=== PATIENT | male | born 1985 | race African-American/Black ===

== ENCOUNTER 2019-06-22 18:03 | Emergency (ER) | payer OTHER ==
[~2019-06-22] VITALS: Ht 182.9 cm; Wt 117.9 kg
[2019-06-22 18:04] VITALS: BP 156/85
[2019-06-22] MEDS ORDERED: CLINDAMYCIN HC300 MG PO (19:54)
[2019-06-22] MEDS ORDERED: TRAMADOL 50 MG50 MG PO (19:54)
== END 2019-06-22 20:10 | disposition home or self-care (01) ==
LOC: ER 18:03
DX: L03.011 Cellulitis of right finger (principal); Z91.013 Allergy to seafood; Z91.018 Allergy to other foods